=== PATIENT | female | born 2000 | race Caucasian/White ===

== ENCOUNTER 2025-02-08 02:27 | Emergency (ER) | payer BC, SELFPAY ==
[2025-02-08 02:42] VITALS: BP 118/80
--- NOTE | 2025-02-08 06:29 | ED.GENMED ---
History of Present Illness
General
Chief Complaint: Musculo-Skeletal Complaint
Source: patient
Time Seen by Provider: 02/08/25 06:06
History of Present Illness
History of Present Illness:
Note:
CHIEF COMPLAINT(S)
Left knee pain and inability to fully extend the knee after a twisting injury.
HISTORY OF PRESENT ILLNESS
The patient is a 24-year-old female who presented with left knee pain which began suddenly on the dance floor without any fall or direct trauma. She describes a sensation as if something shifted within her knee, stating, 'it feels like it flips off
the track.' The pain is localized primarily to the anterior knee. She denies any hip pain or history of knee dislocation. The patient reports difficulty with weight-bearing and inability to extend the knee fully, stating, 'I really cannot' when
asked to bend the knee. There is no history of associated symptoms such as bruising or swelling.
Upon physical examination, there is minor pain experienced with attempts to fully extend the knee. Anterior and posterior drawer tests were normal, indicating stable cruciate ligaments. There was no effusion, no tenderness over the tibial
tuberosity, distal femur, medial collateral ligament (MCL), or lateral collateral ligament (LCL).
Initial x-rays did not show any fractures, and stability tests for the anterior cruciate ligament (ACL) were normal. The patient has not engaged in physical therapy or leg strengthening exercises.
EXAM
CONSTITUTIONAL Vital signs reviewed, Patient alert and oriented to person, place and time. Well-appearing
HEAD atraumatic, normocephalic.
EYES eyelids normal to inspection, Extraocular muscles intact, Conjunctiva normal, Sclera normal.
NECK normal range of motion, Trachea midline, no jugular venous distention.
RESP no respiratory distress
BACK No obvious deformities
UPPER EXTREMITY Gross Range of motion normal, gross motor strength normal
LOWER EXTREMITY there is minor pain experienced with attempts to fully extend the knee. Anterior and posterior drawer tests were normal. There was no effusion, no tenderness over the tibial tuberosity, distal femur, medial collateral ligament (MCL),
or lateral collateral ligament (LCL). Limited range of motion to knee due to pain. No ecchymosis. No redness. No swelling.
NEURO Speech normal, No focal motor deficits include, Worthington coma scale 15, Memory normal, Cranial Nerves intact to screening exam.
SKIN Skin warm, dry, and normal in color.
PSYCHIATRIC Patient oriented to person place and time, Normal affect.
PLAN
- The patient will be fitted with a knee immobilizer to stabilize the knee and aid in weight-bearing.
- Crutches will be provided for additional support until the patient can bear weight comfortably.
- Prescription of ice application and ibuprofen around the clock for pain management.
- Rest and elevation of the limb are advised.
- The patient is advised to follow up with an orthopedic shoe maker if the issue persists.
- Recommendation for physical therapy for leg strengthening once acute symptoms resolve.
- Patient is to avoid work until she can bear weight comfortably with the immobilizer.
DIFFERENTIAL DIAGNOSIS
The Differential Diagnosis includes, in no particular order and is not limited to:
- Knee sprain
- Meniscal injury
- Patellar dislocation or subluxation
- Anterior cruciate ligament injury
- Medial collateral ligament strain
- Lateral collateral ligament strain
- Osteochondritis dissecans
- Chondromalacia patellae
- Patellar tendonitis
- Fracture (although not indicated on initial x-ray)
Disposition:
SUMMARY OF ENCOUNTER
The patient presented with sudden onset left knee pain after a twisting injury on the dance floor, without direct trauma or fall. She reports difficulty in weight-bearing and inability to fully extend her knee. Physical exam showed minor pain on
knee extension but stable ligament tests. An x-ray of the knee was performed and reviewed, showing no fractures or effusion. Given the injury pattern, she was fitted with a knee immobilizer and provided crutches for support. Pain management with
ibuprofen, rest, elevation, and ice application were recommended. Orthopedic follow-up was advised due to the suspicion of a potential meniscal injury.
PLAN
The patient will use a knee immobilizer and crutches to aid in weight-bearing. She is instructed to apply ice, rest, and elevate the left knee. Ibuprofen has been recommended for pain management. Follow-up with an orthopedic shoe maker is advised if
symptoms persist.
INDEPENDENT REVIEW OF LABS AND INTERPRETATION OF TESTS
My independent interpretation of the knee x-ray shows no evidence of fracture, avulsions, or significant effusion.
MEDICATION RECONCILIATION
Ibuprofen was advised for [id number] pain management.
MEDICAL DECISION MAKING
-Complexity of Data Reviewed: Differential diagnosis includes knee sprain, meniscal injury, patellar dislocation or subluxation, anterior cruciate ligament injury, medial collateral ligament strain, lateral collateral ligament strain,
osteochondritis dissecans, chondromalacia patellae, patellar tendonitis, and fracture.
-Data:
Category 1
Independent interpretation of the knee x-ray showed no fractures, avulsions, or gross effusion.
Category 2
Not applicable.
Category 3
Not applicable.
-Risk: Prescription medication was recommended for pain management. Consideration of Admission/Observation: Escalation of care including admission/observation was considered given the complexity and risk of the patients presenting complaint, exam
findings, and/or their underlying comorbidities. However, ultimately I feel the patient is safe for outpatient management with close follow-up. Reasoning: Work-up reassuring, does not reveal any acute life/organ-threatening processes, patients
symptoms well controlled upon reevaluation, reexamination is reassuring, vitals are stable, patient agreeable with discharge, reliable for follow-up.
DIAGNOSIS
Knee sprain
Possible meniscus injury
Phy Exam
Physical Exam
Physical Exam:
.
Course
Orders/Labs/Results
Orders:
Orders
02/08/25 02:46
Knee, Left 4 or More Views [CR Knee - Left 4 Or More View*] Urgent
Comment:
Reason For Exam: injury
02/08/25 06:28
Crutches-Treatment ONCE
Knee Immobilizer Left-Treatmen ONCE
02/08/25 06:29
Ibuprofen [Motrin] 600 mg PO NOW STA
Vital Signs
Initial and Last Documented VS:
Initial Vital Signs
Temp Pulse Resp BP Pulse Ox
99.3 F 121 20 118/80 97
02/08/25 02:42 02/08/25 02:42 02/08/25 02:42 02/08/25 02:42 02/08/25 02:42
Last Documented Vital Signs
Temp Pulse Resp BP Pulse Ox
99.3 F 121 20 118/80 97
02/08/25 02:42 02/08/25 02:42 02/08/25 02:42 02/08/25 02:42 02/08/25 06:29
*Pulse Oximetry
SaO2: 97
Oxygen Mode of Delivery: Room air
Patient hypoxic: no
*Critical Care Note
Total Time (30-74mins, 75-104mins- exclusive of procedures): Not Applicable
ED Attending Note
-
Portions of this chart may have been created with voice recognition software.� Occasional wrong word or��sound alike� substitutions may have occurred due to the inherent limitations of voice recognition software.
Discharge Plan
Departure
Patient Disposition: Home (Routine Discharge)
Date of Disposition: 02/08/25
Time of Disposition: 06:30
Patient with high blood pressure during this ER visit?: No
Discharge Problem:
Injury of knee, left
Instructions: Knee Immobilizer (DC), Knee sprain
Referrals:
Nito Aquino MD [Active, Orthopedics]
UNKNOWN - PT DOES,NOT KNOW [Family Provider]
Activity Restrictions/Additional Instructions:
Please rest, ice and elevate your injured knee. Please see orthopedics in the next 2 weeks for follow-up and reevaluation and to consider further imaging if necessary. Physical therapy may also be necessary. Return immediately for swelling,
worsening pain, fevers or any other concerns.
Interventions
Interventions:
*General Assessment Last Done: 02/08/25 02:42
*Neglect/Abuse Screening Last Done: 02/08/25 02:42
*ED- Fall Risk Assessment Last Done: 02/08/25 02:42
*ED COVID-19 Vaccine History Last Done: 02/08/25 02:42
*ED Influenza Vaccine History Last Done: 02/08/25 02:42
ED-Musculoskeletal Assessment Last Done: 02/08/25 04:45
Discharge Date and Time
Print Language: PERUVIAN
[2025-02-08] MEDS: MOTRIN 600 MG PO (06:40)
== END 2025-02-08 07:00 | disposition home or self-care (01) ==
LOC: EMR 02:27
PROVIDERS: EMERGENCY PHYSICIAN Emergency Medicine
DX: S89.92XA Unspecified injury of left lower leg, initial encounter (principal); X50.1XXA Overexertion from prolonged static or awkward postures, initial encounter
CPT/HCPCS: 99283; 29505; 73564